=== PATIENT | female | born 1945 | race Caucasian/White ===

== ENCOUNTER 2017-09-26 00:49 | Inpatient (IN) | payer OTHER, MEDICARE ==
[~2017-09-26] VITALS: Ht 152.4 cm; Wt 65.8 kg
[~2017-09-26 00:49] MED LIST: AMLODIPINE BESYL5 M1 PO; BENTYL10 MG PO; BYSTOLIC10 M1 PO; CALTRATE 600 +1 EACH PO; DIOVAN160 MG PO; ESTER-C 1,0001 EACH PO; FOSAMAX70 M1 PO; ULTRAM50 M1 PO; VITAMIN D-32000 UNI1 PO; ZOFRAN ODT4 MG PO
--- NOTE | 2017-09-26 09:27 | Operative Report ---
Operative/Inv Procedure Report Surgery Date: 09/26/17 Name of Procedure: Right total knee arthroplasty Pre-Operative Diagnosis: Primary osteoarthritis right knee Post-Operative Diagnosis: Same Estimated Blood Loss: scant Surgeon/Strategy Planning Consultant: Ariella PETIT,Bo Bacon. Anesthesia: block IV Fluids: See anesthesia record Implants: Striker triathlon posterior stabilize knee. Size 4 femur, size 4 tibial tray, 13 mm polyethylene insert, 31 patellar button Drains: None Specimens: Bone to pathology Tourniquet: 46 minutes Complications: None Condition: Stable Operative Indication: Patient 71-year-old female severe osteoarthritis of the right knee. She has failed conservative treatment and wished to proceed with a right total knee arthroplasty. The risks and benefits of the procedure were discussed with the patient detail in the office. A skilled set hands was necessary provided by physician visitor services information assistant Missael Bacon who aided with retraction and limb positioning and component assembly throughout the case. Operative/Procedure Note Note: Once informed consent was obtained and the correct limb was identified the patient was brought to operative room placed on table supine position. After administration of spinal anesthesia patient had a Patrick catheter and a thigh tourniquet placed. The right lower from his prepped and draped usual sterile fashion. To begin the procedure standard midline incision for total knee arthroplasty was made. Sharp dissection was carried down through skin and subcutaneous tissue and fat. A medial parapatellar arthrotomy was performed and the patella was everted. The fat pad is removed from the patellar tendon. The patella thickness was measured to be 21 mm and an 8 mm resection of bone was taken off of the patella with the patellar jig. Patella was then sized to be size 31 symmetric patellar button and the drill holes for the patellar button were made. The knee was placed in flexion and the patella was retracted laterally and protected. Z retractors were placed to protect the medial collateral ligaments. The medial and lateral menisci were sharply debrided and removed. Anterior cruciate ligament and posterior cruciate were resected. The intramedullary canal of the femur was entered with a step drill. The distal femoral cutting guide placed on each medullary canal with the plan resection of 10 mm distally and a 6 valgus cut. Distal cut was made without complication. The femur sizing block was placed in a was determined that a size 4 femur would be appropriate. A size 4 4-in-1 cutting block was placed and distal femur and the anterior, posterior, chamfer cuts were made without, patient bone was passed off as specimen. Once this was done a size 4 box cut guide was placed and the box cut was made for posterior stabilized knee. At this point curved osteotome was placed around just posterior to the femoral condyles to remove any posterior osteophytes. The remainder of the menisci were resected. A pickle fork retractor was placed behind the tibia and tibia was translated anteriorly. A step drill was used to enter the intramedullary canal of the tibia. Intramedullary cutting guide for the tibia was placed and a plan resection of 4 mm of bone off the medial compartment was performed. This bone was passed off as specimen as well. The tibia sized to be a size 4 tibial tray. Reduction was done with a 4 tibial tray a 4 femur and an 11 mm polyethylene insert. The knee was loose to varus and valgus stress and we moved up to a 13 mm polyethylene insert. The knee had full extension and full flexion of 120. It was stable to varus and valgus stress at 0 in mid flexion. There the was taken through a range of motion and the patella tracked nicely. The tibial tray component rotation was marked and the components removed. Tibial tray was pinned in the proper rotation and the keel cut was made. At this point all entrance removed and the knee was pulse lavaged. Cement was mixed on the back table and the components were cemented in place with the tibial component followed by the femoral component and the patellar button. All excess cement was removed with curettes. A 13 mm polyethylene trial insert was placed in a knee was placed in extension while cement hardened. Once the cement had hardened we again taken through range of motion and was found be stable. A 13 mm polyethylene insert was opened and locked onto the tibial tray area the knee was then pulse lavaged and the tourniquet was released. The arthrotomy is closed #1 Vicryl interpreted sutures and subcutaneous tissues closed #1 Vicryl and 2-0 Vicryl interrupted sutures. Skin was closed gricel and sterile dressings applied. Patient was awakened taken recovery in stable condition.
--- NOTE | 2017-09-26 13:13 | PN- Orthopedic ---
Subjective Subjective: Patient reports pain is well controlled. She reports she is tired, states she did not sleep well last night. Tolerating ice chips. Denies any numbness, tingling, fever, chills, chest pain, shortness of breath, nausea or vomiting. Objective Vital Signs and I&Os afebrile, BP 134/54, HR 70, RR 18, O2 93% on RA Physical Exam: Gen - resting comfortably in pacu in nad Cardiac - S1S2 noted Lungs - CTAB Ext - RLE dressing with jose c/d/i, onQ, ice in place, moves all extremities, motor an sensory intact, alps in place, no edema or calf tenderness B/L - tariq in place, 200 cc output Current Medications: Current Medications Sig/Carrie Start time Last Medication Dose Route Stop Time Status Admin Acetaminophen 0 .STK-MED ONE 09/26 0709 DC PO Acetaminophen 650 MG ONCE 09/26 0000 NR PO 09/26 235 Celecoxib 400 MG ONCE 09/26 0000 NR PO 09/26 235 Dexamethasone 0 .STK-MED ONE 09/26 0708 DC .ROUTE Dexamethasone 10 MG ONCE 09/26 0000 NR IV 09/26 235 Gabapentin 0 .STK-MED ONE 09/26 0709 DC PO Gabapentin 300 MG ONCE 09/26 0000 NR PO 09/26 235 Oxycodone HCl 0 .STK-MED ONE 09/26 0709 DC PO Oxycodone HCl 10 MG ONCE 09/26 0000 NR PO 09/26 235 Ropivacaine 500 ML ONCE ONE 09/26 1000 AC ON-Q Ball 1 BAG INJ 09/28 1159 Scopolamine HBr 0 .STK-MED ONE 09/26 0708 DC TOP Scopolamine HBr 1 PAT ONCE 09/26 0000 NR TOP 09/26 235 Vancomycin HCl 1,000 MG ONCE 09/26 0000 DC Sodium Chloride 250 ML IV 09/26 235 Vancomycin HCl 1,000 MG ONCE 09/26 0000 NR Dextrose/Water 250 ML IV 09/26 235 Assessment/Plan Assessment/Plan 72 F w/ hx of htn who is POD 0 s/p R TKR due to right knee OA, recovering well PT eval, WBAT Advance to regular diet Cont IVF Postop op abx - vanco x1 DVT ppx - eliquis bid tomorrow am, alps Bowel regimen on board Home meds ordered Encourage IS D/c tariq in am Medicine c/s for co-management Anticipate d/c home with hhs in 2-3 days Core Measures Venous Thromboembolism VTE Risk Factors Surgery No Mechanical VTE Prophylaxis d/t N/A MechProphylax Ordered No VTE Pharm Prophylaxis d/t NA PharmProphylax ordered
--- NOTE | 2017-09-26 13:13 | Admission Core Measures ---
Acute Coronary Syndrome (CM) ACS Core Measures Acute Coronary Syndrome Diagnosis No Congestive Heart Failure (NEW) CHF Core Measures Congestive Heart Failure Diagnosis No Cerebrovascular Accident (NEW) CVA Core Measures CVA/TIA Diagnosis No Venous Thromboembolism VTE Core [place] (View Protocol) VTE Risk Factors Surgery No Mechanical VTE Prophylaxis d/t N/A MechProphylax Ordered No VTE Pharm Prophylaxis d/t NA PharmProphylax ordered Problem List As ranked by this Provider includes Assessment & Plan 1. Primary osteoarthritis of right knee HOME MEDS Home Med List Alendronate Sodium (Fosamax) 70 MG TABLET 1 TAB PO QMON osteoporosis ( Reported) Amlodipine Besylate 5 MG TABLET 1 TAB PO DAILY HTN (Reported) Ascorbate Calcium/Bioflavonoid (Anisa-C 1,000 MG Tablet) 1,000 MG-200 MG TABLET 1 TAB PO DAILY SUPPLEMENT (Reported) Calcium Carbonate/Vitamin D3 (Caltrate 600 + D Tablet) 600 MG-800 TABLET 1 TAB PO DAILY SUPPLEMENT (Reported) Cholecalciferol (Vitamin D3) (Vitamin D-3) 2,000 UNIT CAPSULE 1 TAB PO DAILY SUPPLEMENT (Reported) Nebivolol HCl (Bystolic) 10 MG TABLET 1 TAB PO DAILY CARDIAC (Reported) Tramadol HCl (Ultram) 50 MG TABLET 1 TAB PO DAILY PAIN (Reported) Valsartan (Diovan) 160 MG TABLET 1 TAB PO DAILY CARDIAC (Reported)
--- NOTE | 2017-09-26 13:15 | Surgical Discharge Summary ---
Visit Information Visit Dates Admission Date: 09/26/17 Discharge Date: 09/29/17 History of Present Illness Chief Complaint: Right knee pain Medical History Cardiovascular: hypertension Isolation History: Standard Surgical History Pertinent Surgical History: knee replacement (R on 09/26/17) Psychosocial History Who Do You Live With? Spouse Services at Home: None What is Your Primary Language? Yoruba Review of Systems: Refer to H&P Hospital Course Course Attending Physician: Bo Krishnan MD Primary Care Physician: Andrei Bridges MD Hospital Course: Patient was admitted to the hospital for an elective right total knee replacement. The procedure was tolerated well and patient was transferred to a general surgical floor. Medicine was consulted for comedical management. Diet was advanced and tolerated and the patient voided spontaneously. The patient was evaluated and treated by physical therapy. At the time of hospital discharge, the vital signs were stable, neurovascular status was intact and pain was controlled with the use of oral pain medications. Allergies: Coded Allergies: Penicillins (RASH 09/23/17) Disposition Summary Disposition Principal Diagnosis: Primary osteoarthritis, right knee Additional Diagnosis: Same s/p Right total knee arthroplasty Discharge Disposition: home health services Discharge Instructions General Discharge Information Code Status: Full Code Patient's Diet: Regular Patient's Activity: WBAT, RW as needed Follow-Up Instructions/Appts: Follow up in [address] Krishnan Medications at Discharge Discharge Medications: Continue taking these medications: Tramadol HCl (Ultram) 50 MG TABLET 1 Tablet ORAL DAILY Alendronate Sodium (Fosamax) 70 MG TABLET 1 Tablet ORAL EVERY SUNDAY Instructions: in the morning, at least 30 minutes before the first food, beverage, or medication of the day Comments: on Sunday Amlodipine Besylate (Amlodipine Besylate) 5 MG TABLET 1 Tablet ORAL DAILY Valsartan (Diovan) 160 MG TABLET 1 Tablet ORAL DAILY Nebivolol HCl (Bystolic) 10 MG TABLET 1 Tablet ORAL DAILY Ascorbate Calcium/Bioflavonoid (Anisa-C 1,000 MG Tablet) 1,000 MG-200 MG TABLET 1 Tablet ORAL DAILY Calcium Carbonate/Vitamin D3 (Caltrate 600 + D Tablet) 600 MG-800 TABLET 1 Tablet ORAL DAILY Cholecalciferol (Vitamin D3) (Vitamin D-3) 2,000 UNIT CAPSULE 1 Tablet ORAL DAILY Start taking the following new medications: Hydrocodone/Acetaminophen (Hydrocodon-Acetaminophen 5-325) 5 MG-325 MG TABLET 1-2 Tablet ORAL EVERY 4-6 HOURS NEEDED as needed for PAIN Qty = 15 No Refills Apixaban (Eliquis) 2.5 MG TABLET 1 Tablet ORAL TWICE DAILY Qty = 80 No Refills
--- NOTE | 2017-09-26 13:29 | Cons- Medical ---
Grace PETIT,uQe 09/26/17 1329: General Information and HPI Consulting Request Date of Consult: 09/26/17 Requested By: Ariella PETIT,Bo Griffith Reason for Consult: Co-Management Source of Information: patient, family, old records Exam Limitations: no limitations History of Present Illness: Ms. Chung is a pleasant 72-year-old female with past medical history of hypertension and osteoarthritis who was seen today at the [facility] for right knee arthroplasty. Patient had been experiencing right knee pain and over the last three years and in the last 12 months had noticed worsening in her symptoms. She denied any trauma or any injury. Patient successfully underwent procedure in the morning of 09/26/2017. The medical service was asked to see the patient postoperatively. She was resting comfortably in bed. She denied any complaints. Denies any recent changes to her medication and has had no significant side effects from any of her medications. Primary care physician is Dr. Bridges. During the time of clinical infection she was accompanied by her 2 sons Freddie and Jack and well as her . Allergies/Medications Allergies: Coded Allergies: Penicillins (RASH 09/23/17) Home Med List: Alendronate Sodium (Fosamax) 70 MG TABLET 1 TAB PO QMON osteoporosis ( Reported) in the morning, at least 30 minutes before the first food, beverage, or medication of the day Amlodipine Besylate 5 MG TABLET 1 TAB PO DAILY HTN (Reported) Ascorbate Calcium/Bioflavonoid (Anisa-C 1,000 MG Tablet) 1,000 MG-200 MG TABLET 1 TAB PO DAILY SUPPLEMENT (Reported) Calcium Carbonate/Vitamin D3 (Caltrate 600 + D Tablet) 600 MG-800 TABLET 1 TAB PO DAILY SUPPLEMENT (Reported) Cholecalciferol (Vitamin D3) (Vitamin D-3) 2,000 UNIT CAPSULE 1 TAB PO DAILY SUPPLEMENT (Reported) Nebivolol HCl (Bystolic) 10 MG TABLET 1 TAB PO DAILY CARDIAC (Reported) Tramadol HCl (Ultram) 50 MG TABLET 1 TAB PO DAILY PAIN (Reported) Valsartan (Diovan) 160 MG TABLET 1 TAB PO DAILY CARDIAC (Reported) Current Medications: Current Medications Sig/Carrie Start time Last Medication Dose Route Stop Time Status Admin Acetaminophen 0 .STK-MED ONE 09/26 0709 DC PO Acetaminophen 1,000 MG .STK-MED ONE 09/26 0645 DC IV 09/26 0646 Acetaminophen 650 MG ONCE 09/26 0000 DC PO 09/26 2359 Amlodipine Besylate 5 MG DAILY 09/26 0900 AC PO Apixaban 2.5 MG BID 09/27 0900 AC PO Celecoxib 400 MG DAILY 09/27 09 AC PO Celecoxib 400 MG ONCE 09/26 0000 DC PO 09/26 2359 Dexamethasone 0 .STK-MED ONE 09/26 0708 DC .ROUTE Dexamethasone 10 MG ONCE 09/26 0000 DC IV 09/26 2359 Dextrose/Lactated 1,000 ML Q13H 09/26 1400 AC Ringer's IV Docusate Sodium 100 MG DAILY NEEDED PRN 09/26 1400 AC PO Fentanyl Citrate 200 MCG .STK-MED ONE 09/26 0644 DC IM 09/26 0645 Gabapentin 0 .STK-MED ONE 09/26 0709 DC PO Gabapentin 300 MG ONCE 09/26 0000 DC PO 09/26 2359 Losartan Potassium 50 MG DAILY 09/27 899 AC PO Midazolam HCl 4 MG .STK-MED ONE 09/26 0645 DC IM 09/26 0646 Morphine Sulfate 2 MG Q3P PRN 09/26 1400 AC IV Morphine Sulfate 4 MG Q3P PRN 09/26 1400 AC IV Morphine Sulfate 10 MG .STK-MED ONE 09/26 0644 DC IV 09/26 0645 Nebivolol 10 MG DAILY 09/27 0900 AC PO Ondansetron HCl 4 MG Q6P PRN 09/26 1400 AC IV Oxycodone HCl 0 .STK-MED ONE 09/26 0709 DC PO Oxycodone HCl 10 MG ONCE 09/26 0000 DC PO 09/26 2359 Oxycodone/ 1 TAB Q4P PRN 09/26 1400 AC Acetaminophen PO Oxycodone/ 2 TAB Q4P PRN 09/26 1400 AC Acetaminophen PO Polyethylene Glycol 17 GM DAILY NEEDED PRN 09/26 1400 AC PO Ropivacaine 500 ML ONCE ONE 09/26 1000 AC ON-Q Ball 1 BAG INJ 09/28 1159 Scopolamine HBr 0 .STK-MED ONE 09/26 0708 DC TOP Scopolamine HBr 1 PAT ONCE 09/26 0000 DC TOP 09/26 2359 Senna/Docusate Sodium 2 TAB AT BEDTIME NEED.. 09/26 1400 AC PO Tranexamic Acid 2,000 MG .STK-MED ONE 09/26 0643 DC IV 09/26 0644 Vancomycin HCl 1,000 MG 1900 09/26 1900 AC Dextrose/Water 250 ML IV 09/26 1959 Vancomycin HCl 1,000 MG ONCE 09/26 0000 DC Sodium Chloride 250 ML IV 09/26 2358 Vancomycin HCl 1,000 MG ONCE 09/26 0000 DC Dextrose/Water 250 ML IV 09/26 2358 Review of Systems Review of Systems Constitutional: Reports: see HPI. Past History Medical History Cardiovascular: hypertension Surgical History Surgical History: knee replacement (R on 09/26/17) Family History Relations & Conditions If Any: MOTHER (DM). FATHER (Pancreatic CA). Psychosocial History Where Do You Live? Home Who Do You Live With? spouse, child Services at Home: None Primary Language: Paraguayan Smoking Status: Former Smoker ETOH Use: denies use Illicit Drug Use: denies illicit drug use Exam & Diagnostic Data Last 24 Hrs of Vital Signs/I&O Vital Signs Date Time Temp Pulse Resp B/P B/P Pulse O2 O2 Flow FiO2 Mean Ox Delivery Rate 09/26 1404 95 Room Air 09/26 1400 97.5 65 16 132/58 95 Room Air Intake & Output 09/26 1600 09/26 0800 09/26 0000 Intake Total Output Total 225 Balance -225 Output, Urine 225 Patient 65.771 kg Weight Physical Exam General Appearance: well developed/nourished, no apparent distress, alert Head: atraumatic, normal appearance Eyes: Bilateral: PERRL, EOMI. Cardiovascular: regular rate/rhythm, Left Sided carotid bruit Gastrointestinal: normal bowel sounds, soft, non-tender Extremities: normal inspection, normal capillary refill, Right knee in bandage. C/D/I. No strike through. Warm extremities. No Calf tenderens. Neurologic/Psych: no motor/sensory deficits, awake, alert, oriented x 3 Cranial Nerves: normal hearing, normal speech, PERRL Skin: intact, normal color Last 24 Hrs of Labs/James: Laboratory Tests 09/27/17 0820: Sodium Pending, Potassium Pending, Chloride Pending, Carbon Dioxide Pending, Anion Gap Pending, BUN Pending, Creatinine Pending, BUN/Creatinine Ratio Pending , CBC w Diff Pending, WBC Pending, RBC Pending, Hgb Pending, Hct Pending, MCV Pending, MCH Pending, MCHC Pending, RDW Pending, Plt Count Pending, MPV Pending Assessment/Plan Assessment/Plan Ms. Chung is a pleasant 72-year-old female with past medical history of hypertension and osteoarthritis who was seen today at the [facility] for right knee arthroplasty. Right knee arthroplasty due to history of osteoarthritis. POD #0 Currently stable. PLAN Continue postop pain per surgery. Weightbearing as tolerated. Consider PT consultation over the course of the week Left Carotid Bruit Stable Plan She followed up with Kirk Moreira MD. Hold Cardiology consultation for now unless endorses chest pain/vision abnormalities Essential hypertension. Patient's last blood pressure is 132/58 Plan Continue amlodipine 5 mg. Bystolic 20 mg. Diovan 160 mg daily. History of osteo-porosis. Patient is on alendronate which she takes once a week. Plan Stable Continue alendronate 70 mg as outpatient. DVT prophylaxis as per surgery. Diet heart healthy with sodium restriction Patient is a full code. We will continue to follow the patient with you and in the interim we thank you for this consult. Problem List: 1. Primary osteoarthritis of right knee Consult Acknowledgment - Thank you for your consult request. Kaden Delgado MD 09/26/17 2202: Assessment/Plan Consult Acknowledgment - Thank you for your consult request. Attending MD Review Statement Attending Statement Attending MD Statement: examined this patient, discuss w/resident/PA/EARLY BREASTFEEDING CARE SPECIALIST, agreed w/resident/PA/EARLY BREASTFEEDING CARE SPECIALIST, reviewed EMR data (avail), discussed with nursing, amended to note Attending Assessment/Plan: The patient is a 72 yo female with h/o HTN & OA who presented for elective right knee arthroplasty done for OA. Pre-operatively she had been evaluated by her PCP (Dr. Bridges) and was sent to Cardiology (Dr. Moreira) for evaluation as well and had been determined to be low risk for surgery. She did well with surgery and when I saw her in PACU she had no complaints. Surgery was performed under spinal anesthesia. Physical Exam: VS: T 97.5, P 65, R 16, BP 132/58, PO 96% RA HEENT: eyes- PERRLA, EOMI ayah- moist mucosa Neck: no bruits (?pre-op mentioned left sided bruit) & no JVD Chest: clear Cor: RRR nl S1, S2 w/o murm Abd: BS+, soft, NT, - HSM Ext: s/p left knee arthroplasty, no edema, pulses 2+ Neuro: alert & oriented x 3, non-focal Labs/Test- as above Impression/Plan: #S/P Right Knee Arthroplasty- due to OA. Did well with procedure. No c/o at present. Plan: Post op care as per orthopedics. Apixaban for anti-coagulation. #Essential HTN- BP good as above. Plan: Continue Amlodipine/Diovan/Bystolic. #Osteoporosis- on Alendronate. Plan: Hold while inpatient and resume as OP.
--- NOTE | 2017-09-26 13:34 | Patient Discharge Instructions ---
Discharge Instructions General Discharge Information You were seen/treated for: Right knee osteoarthritis You had these procedures: Right total knee replacement Watch for these problems: Increased pain, fever > 101.3, chills, redness, swelling or drainage from your incision. No bath, but you may shower: Yes Other wound care: Keep incision clean an dry, change dressing daily. No ointments on the incision. Special Instructions: Take eliquis as prescribed to prevent clot prevention Diet Continue normal diet: Yes Activity Full Activity/No Limits: No Activity Self Limited: Yes Activity Limited to: Weight bear as tolerated Additional ACTIVITY Info: Use rolling walker as needed Acute Coronary Syndrome Inclusion Criteria At DC or during hospital stay patient has or had the following: ACS DIAGNOSIS No Discharge Core Measures Meds if any: Prescribed or Continued at Discharge Meds if any: NOT Prescribed or Continued at Discharge Congestive Heart Failure Inclusion Criteria At DC or during hospital stay patient has or had the following: CHF DIAGNOSIS No Discharge Core Measures Meds if any: Prescribed or Continued at Discharge Meds if any: NOT Prescribed or Continued at Discharge Cerebrovascular accident Inclusion Criteria At DC or during hospital stay patient has or had the following: CVA/TIA Diagnosis No Discharge Core Measures Meds if any: Prescribed or Continued at Discharge Meds if any: NOT Prescribed or Continued at Discharge Venous thromboembolism Inclusion Criteria VTE Diagnosis No VTE Type NONE VTE Confirmed by (Test) NONE Discharge Core Measures - Per Current guidelines, there needs to be overlap - treatment for the first 5 days of Warfarin therapy. - If discharged on Warfarin prior to 5 days of - overlap therapy, the patient will need to be - assessed for post discharge needs including - *Post discharge parental anticoagulation - *Warfarin and/or parental anticoagulation education - *Follow up date to check INR post discharge At least 5 days overlap therapy as Inpatient No Meds if any: Prescribed or Continued at Discharge Note: Overlap Therapy is Warfarin and Anticoagulant Meds if any: NOT Prescribed or Continued at Discharge
[2017-09-26 14:00] VITALS: BP 132/58
[2017-09-26 16:00] VITALS: BP 130/52
[2017-09-26 18:00] VITALS: BP 122/52
[2017-09-26 20:00] VITALS: BP 130/60
[2017-09-27] VITALS (7 sets, daily range): BP systolic 112–160; BP diastolic 58–78
--- NOTE | 2017-09-27 07:12 | PN- Medicine Consult ---
See Addendum Assessment/PlanMedical Consult Assessment/Plan Assessment: Ms. Chung is a pleasant 72-year-old female with past medical history of hypertension and osteoarthritis who admitted on 09/26 at [facility] for right knee arthroplasty. Plan: Right knee arthroplasty due to history of osteoarthritis. POD #1 Currently stable. Morning Labs are pending. PLAN Continue postop pain per surgery. Weightbearing as tolerated. Consider PT consultation over the course of the week Left Carotid Bruit Stable Plan She followed up with Kirk Moreira MD. Hold Cardiology consultation for now unless endorses chest pain/vision abnormalities Essential hypertension. Patient's last blood pressure is 122/62 Plan Continue amlodipine 5 mg. Bystolic 10 mg (home dose is 20 mg). Diovan 160 mg daily. History of osteo-porosis. Patient is on alendronate which she takes once a week. Plan Stable Continue alendronate 70 mg as outpatient. DVT prophylaxis Eliquis 2.5 BID Diet heart healthy with sodium restriction Patient is a full code. We will continue to follow the patient with you and in the interim we thank you for this consult. Subjective Subjective: Ms. Chung was seen and examined this morning. She is Resting comfortably in bed. Patient has had no issued overnight and was able to get some rest, she states that she feels better. She states that she is almost pain-free stating that the pain has been well controlled and does not require any more pain medications. She also states that she is very happy with how her blood pressures have been trending. She endorses no further complaints patient denies any fever, chills, nausea, vomiting. Review of Systems Constitutional: Reports: see HPI. Objective Last 24 Hrs of Vital Signs/I&O Vital Signs Date Time Temp Pulse Resp B/P B/P Pulse O2 O2 Flow FiO2 Mean Ox Delivery Rate 09/27 0854 67 122/62 09/27 0854 67 122/62 09/27 0853 67 122/62 09/27 0812 98.0 67 20 122/62 98 Room Air 09/27 0412 97.7 81 16 112/70 94 Room Air 09/27 0011 98.2 77 18 116/78 96 Room Air 09/26 2000 97.0 68 20 130/60 95 09/26 1800 97.6 71 16 122/52 99 Room Air 09/26 1600 99 Room Air 09/26 1600 97.8 59 16 130/52 96 Room Air 09/26 1404 95 Room Air 09/26 1400 97.5 65 16 132/58 95 Room Air Intake & Output 09/27 1600 09/27 0800 09/27 0000 Intake Total 1200 760 Output Total 200 1000 540 Balance -200 200 220 Intake, IV 600 300 Intake, Oral 600 460 Output, Urine 200 1000 540 Physical Exam General Appearance: well developed/nourished, no apparent distress, alert, awake Ears, Nose, Throat: normal pharynx Neck: Left Sided catotid bruir 08/14 Cardiovascular: regular rate/rhythm Respiratory: normal breath sounds, chest non-tender, no respiratory distress Abdomen: normal bowel sounds Extremities: normal inspection, normal capillary refill, no edema, No calf tenderness. Right knee in bandage. clean, dry and intact. Neurologic/Psychiatric: no motor/sensory deficits, awake, alert Current Medications: Current Medications Sig/Carrie Start time Last Medication Dose Route Stop Time Status Admin Acetaminophen 325 MG Q6P PRN 09/27 0945 AC PO Acetaminophen 650 MG ONCE 09/26 0000 DC PO 09/26 2359 Amlodipine Besylate 5 MG DAILY 09/26 09 AC 09/27 PO 0854 Apixaban 2.5 MG BID 09/27 09 AC 09/27 PO 0854 Celecoxib 400 MG DAILY 09/27 09 AC 09/27 PO 0854 Celecoxib 400 MG ONCE 09/26 0000 DC PO 09/26 2359 Dexamethasone 10 MG ONCE 09/26 0000 DC IV 09/26 2359 Dextrose/Lactated 1,000 ML Q13H 09/26 1400 DC 09/27 Ringer's IV 0202 Docusate Sodium 100 MG DAILY NEEDED PRN 09/26 1400 AC PO Gabapentin 300 MG ONCE 09/26 0000 DC PO 09/26 2359 Losartan Potassium 50 MG DAILY 09/27 0900 AC 09/27 PO 0854 Morphine Sulfate 2 MG Q3P PRN 09/26 1400 AC IV Morphine Sulfate 4 MG Q3P PRN 09/26 1400 AC IV Nebivolol 10 MG DAILY 09/27 0900 AC 09/27 PO 0853 Ondansetron HCl 4 MG Q6P PRN 09/26 1400 AC IV Oxycodone HCl 10 MG ONCE 09/26 0000 DC PO 09/26 2359 Oxycodone/ 1 TAB Q4P PRN 09/26 1400 AC 09/27 Acetaminophen PO 0604 Oxycodone/ 2 TAB Q4P PRN 09/26 1400 AC Acetaminophen PO Polyethylene Glycol 17 GM DAILY NEEDED PRN 09/26 1400 AC 09/27 PO 0854 Ropivacaine 500 ML ONCE ONE 09/26 1000 AC ON-Q Ball 1 BAG INJ 09/28 1159 Scopolamine HBr 1 PAT ONCE 09/26 0000 DC TOP 09/26 2359 Senna/Docusate Sodium 2 TAB AT BEDTIME NEED.. 09/26 1400 AC PO Vancomycin HCl 1,000 MG 1900 09/26 1900 DC 09/26 Dextrose/Water 250 ML IV 09/26 1959 1849 Vancomycin HCl 1,000 MG ONCE 09/26 0000 DC Dextrose/Water 250 ML IV 09/26 2359 Results Last 24 Hrs Lab/James Results: Laboratory Tests 09/27/17 0820: Sodium Pending, Potassium Pending, Chloride Pending, Carbon Dioxide Pending, Anion Gap Pending, BUN Pending, Creatinine Pending, BUN/Creatinine Ratio Pending , CBC w Diff Pending, WBC Pending, RBC Pending, Hgb Pending, Hct Pending, MCV Pending, MCH Pending, MCHC Pending, RDW Pending, Plt Count Pending, MPV Pending
[2017-09-27 09:38] LABS: ABSOLUTE BASOPHIL COUNT 0 /CUMM (0.0-0.2); ABSOLUTE EOSINOPHIL COUNT 0 /CUMM (0.0-0.7); ABSOLUTE GRANULOCYTE CT 20.5 /CUMM (1.4-6.5); ABSOLUTE LYMPH COUNT 1.1 /CUMM (1.2-3.4); ABSOLUTE MONOCYTE COUNT 0.9 /CUMM (0.10-0.60); BASOPHIL % 0.1 % (0.0-2.0); EOSINOPHIL % 0 % (0-5); HEMATOCRIT 25.4 % (37-47); MEAN CORPUSCULAR HGB CONC 33.6 G/DL (33.0-37.0); MEAN CORPUSCULAR VOLUME 92.1 FL (81.0-99.0); MEAN PLATELET VOLUME 7.3 FL (7.4-10.4); PLATELET COUNT 319 /CUMM (130-400); RBC DISTRIBUTION WIDTH 14.1 % (11.5-14.5); RED BLOOD CELL CT 2.76 /CUMM (4.20-5.40); WHITE BLOOD CELL COUNT 22.5 /CUMM (4.8-10.8)
--- NOTE | 2017-09-27 09:46 | PN- Orthopedic ---
Subjective Subjective: Pt. has no complaints. Her Patrick was removed this morning , she voided subsequently. She wishes for plain Tylenol for discomfort. No nausea Objective Vital Signs and I&Os Vital Signs Date Time Temp Pulse Resp B/P B/P Pulse O2 O2 Flow FiO2 Mean Ox Delivery Rate 09/27 0854 67 122/62 09/27 0854 67 122/62 09/27 0853 67 122/62 09/27 0812 98.0 67 20 122/62 98 Room Air 09/27 0412 97.7 81 16 112/70 94 Room Air 09/27 0011 98.2 77 18 116/78 96 Room Air 09/26 2000 97.0 68 20 130/60 95 09/26 1800 97.6 71 16 122/52 99 Room Air 09/26 1600 99 Room Air 09/26 1600 97.8 59 16 130/52 96 Room Air 09/26 1404 95 Room Air 09/26 1400 97.5 65 16 132/58 95 Room Air Intake & Output 09/27 1600 09/27 0800 09/27 0000 09/26 1600 09/26 0800 09/26 0000 Intake Total 1200 760 Output Total 200 1000 540 225 Balance -200 200 220 -225 Intake, IV 600 300 Intake, Oral 600 460 Output, Urine 200 1000 540 225 Patient 145 lb Weight Alert, oriented, appropriate, sitting in chair. HEENT unremarkable. Lungs clear bilat Heart , normal rate Abdomen benign. RLE dressing on , intact. OnQ pump in place, insertion site intact. Bilat. LE warm, no edema, palpable bilat. distal pulses, neurovascular intact. Assessment/Plan Assessment/Plan s/p RTKA for OA POD#1 Pt. hemodynamically stable, normal VS, voiding spontaneously post Patrick removal. Good pain control, will add Tylenol prn for mild pain per pt. request. No signs of infection Ambulate, pt. working with PT. Tolerating solid food, will d/c IVF Cont. Eliquis bid per surgeon. Possible d/c home tomorrow, will d/c On Q pump and change dressing tomorrow. Core Measures Venous Thromboembolism VTE Risk Factors Surgery No Mechanical VTE Prophylaxis d/t N/A MechProphylax Ordered No VTE Pharm Prophylaxis d/t NA PharmProphylax ordered
[2017-09-27 10:51] LABS: GRANULOCYTE % 91.3 % (42.2-75.2)
[2017-09-28 02:07] VITALS: BP 162/50
[2017-09-28 06:20] VITALS: BP 142/68
--- NOTE | 2017-09-28 07:13 | PN- Medicine Consult ---
See Addendum Assessment/PlanMedical Consult Assessment/Plan Assessment: Ms. Chung is a pleasant 72-year-old female with past medical history of hypertension and osteoarthritis who admitted on 09/26 at [facility] for right knee arthroplasty. Plan: Right knee arthroplasty due to history of osteoarthritis. POD #2 Currently stable. Morning Labs reviewed. Electrolytes WNL. Hyperkalemia normalized. PLAN Continue postop pain per surgery. Discontinued Percocet. Weightbearing as tolerated. Left Carotid Bruit Stable Plan She followed up with Kirk Moreira MD. Hold Cardiology consultation for now unless endorses chest pain/vision abnormalities Essential hypertension. Patient's last blood pressure is 142/68 Plan Continue amlodipine 5 mg. Bystolic 10 mg (home dose is 20 mg), may consider increase to 20 mg. Diovan 160 mg daily. History of osteo-porosis. Patient is on alendronate which she takes once a week. Plan Stable Continue alendronate 70 mg as outpatient. DVT prophylaxis Eliquis 2.5 BID Diet heart healthy with sodium restriction Patient is a full code. We will continue to follow the patient with you and in the interim we thank you for this consult. Subjective Subjective: Ms Chung was seen and examined this morning. She is resting comfortably in bed. She denies any issues overnight and was able to work with PT walking across the yang and the stairs. States that she did have an allergic reaction to Percocet after she broke out in a rash. She has refrained from taknig this medication and instead will use tramadol and acetaminophen. She denies any nausea or vomiting. Review of Systems Constitutional: Reports: see HPI. Objective Last 24 Hrs of Vital Signs/I&O Vital Signs Date Time Temp Pulse Resp B/P B/P Pulse O2 O2 Flow FiO2 Mean Ox Delivery Rate 09/28 0620 98.1 63 20 142/68 95 Room Air 09/28 0207 98.1 61 20 162/50 95 Room Air 09/27 2200 98.6 63 20 160/58 94 Room Air 09/27 1800 98.3 63 18 160/58 98 Room Air 09/27 1440 98.2 70 18 138/60 99 Room Air 09/27 1145 98.5 64 20 126/58 100 Room Air 09/27 0854 67 122/62 09/27 0854 67 122/62 09/27 0853 67 122/62 Intake & Output 09/28 1600 09/28 0800 09/28 0000 Intake Total 360 290 Output Total 800 1800 Balance -440 -1510 Intake, IV 10 Intake, Oral 360 280 Output, Urine 800 1800 Physical Exam General Appearance: well developed/nourished, no apparent distress, alert, awake Cardiovascular: regular rate/rhythm Respiratory: normal breath sounds, chest non-tender, no respiratory distress Peripheral Pulses: 4+ dorsalis pedis (R), 4+ dorsalis pedis (L) Abdomen: normal bowel sounds, soft, non-tender Extremities: normal inspection, normal capillary refill, normal range of motion, Right Knee in bandage. C/D/I Current Medications: Current Medications Sig/Carrie Start time Last Medication Dose Route Stop Time Status Admin Acetaminophen 325 MG Q6P PRN 09/27 0945 AC 09/27 PO 2022 Amlodipine Besylate 5 MG DAILY 09/26 09 AC 09/27 PO 0854 Apixaban 2.5 MG BID 09/27 09 AC 09/27 PO 2022 Celecoxib 400 MG DAILY 09/27 09 AC 09/27 PO 0854 Dextrose/Lactated 1,000 ML Q13H 09/26 1400 DC 09/27 Ringer's IV 0202 Docusate Sodium 100 MG DAILY NEEDED PRN 09/26 1400 AC PO Losartan Potassium 50 MG DAILY 09/27 0900 AC 09/27 PO 0854 Morphine Sulfate 2 MG Q3P PRN 09/26 1400 AC IV Morphine Sulfate 4 MG Q3P PRN 09/26 1400 AC IV Nebivolol 10 MG DAILY 09/27 0900 AC 09/27 PO 0853 Ondansetron HCl 4 MG Q6P PRN 09/26 1400 AC IV Oxycodone/ 1 TAB Q4P PRN 09/26 1400 AC 09/27 Acetaminophen PO 0604 Oxycodone/ 2 TAB Q4P PRN 09/26 1400 AC Acetaminophen PO Patient Medication 1 ED ONE ONE 09/27 1944 NM Teaching ED 09/27 1945 Polyethylene Glycol 17 GM DAILY NEEDED PRN 09/26 1400 AC 09/27 PO 0854 Ropivacaine 500 ML ONCE ONE 09/26 1000 AC ON-Q Ball 1 BAG INJ 09/28 1159 Senna/Docusate Sodium 2 TAB AT BEDTIME NEED.. 09/26 1400 AC PO Tramadol HCl 50 MG Q4 PRN 09/27 1900 AC 09/28 PO 0411 Results Last 24 Hrs Lab/James Results: Laboratory Tests 09/28/17 0641: Sodium Pending, Potassium Pending, Chloride Pending, Carbon Dioxide Pending, Anion Gap Pending, BUN Pending, Creatinine Pending, BUN/Creatinine Ratio Pending
[2017-09-28 09:17] LABS: ABSOLUTE BASOPHIL COUNT 0 /CUMM (0.0-0.2); ABSOLUTE EOSINOPHIL COUNT 0.2 /CUMM (0.0-0.7); ABSOLUTE GRANULOCYTE CT 10.5 /CUMM (1.4-6.5); ABSOLUTE LYMPH COUNT 2.1 /CUMM (1.2-3.4); ABSOLUTE MONOCYTE COUNT 0.9 /CUMM (0.10-0.60); BASOPHIL % 0.2 % (0.0-2.0); EOSINOPHIL % 1.3 % (0-5); GRANULOCYTE % 76.5 % (42.2-75.2); HEMATOCRIT 26.6 % (37-47); MEAN CORPUSCULAR HGB 30.5 PG (27.0-31.0); MEAN CORPUSCULAR HGB CONC 33.1 G/DL (33.0-37.0); MEAN CORPUSCULAR VOLUME 91.9 FL (81.0-99.0); MEAN PLATELET VOLUME 6.8 FL (7.4-10.4); PLATELET COUNT 349 /CUMM (130-400); RBC DISTRIBUTION WIDTH 14.4 % (11.5-14.5); RED BLOOD CELL CT 2.89 /CUMM (4.20-5.40); WHITE BLOOD CELL COUNT 13.7 /CUMM (4.8-10.8)
--- NOTE | 2017-09-28 09:21 | PN- Orthopedic ---
Subjective Subjective: No acute overnight events reported. On Q removed this am, complaining of pain, does state that pain responds to tramadol. Denies chest pain, shortness of breath and difficulty breathing. Denies nausea and vomitting. Has been oob. Has been voiding. Objective Vital Signs and I&Os Vital Signs Date Time Temp Pulse Resp B/P B/P Pulse O2 O2 Flow FiO2 Mean Ox Delivery Rate 09/28 0900 98.1 63 20 142/68 09/28 0900 98.1 63 20 142/68 09/28 0859 98.1 63 20 142/68 09/28 0620 98.1 63 20 142/68 95 Room Air 09/28 0207 98.1 61 20 162/50 95 Room Air 09/27 2200 98.6 63 20 160/58 94 Room Air 09/27 1800 98.3 63 18 160/58 98 Room Air 09/27 1440 98.2 70 18 138/60 99 Room Air 09/27 1145 98.5 64 20 126/58 100 Room Air Intake & Output 09/28 1600 09/28 0800 09/28 0000 09/27 1600 09/27 0800 09/27 0000 Intake Total 360 994 093 0082 760 Output Total 800 8279 469 3927 540 Balance -440 -1510 -320 200 220 Intake, IV 10 600 300 Intake, Oral 360 280 480 600 460 Number 0 Bowel Movements Output, Urine 800 9638 118 2200 540 Physical Exam: General: Alert and oriented x3, no acute distress Cardiac: RRR, s1s2 Pulm: C T A bilaterally ABD: Non-tender non-distended Extremities: Moves all extremities, distal sensation grossly intact. Skin warm and well perfused. Dp pulses palpable bialterally, bilateral calves soft and non -tender Surgical site: RIght knee. Dressing removed. Skin edges well approximated with gricel. No drainage, some bruising noted medially and laterally. Clean dry dressing reapplied. Assessment/Plan Assessment/Plan This is a 72 year old female, POD 2, s/p R TKR -Continue eliquis 2.5 bid for dvt ppx -Continue oob, wbat -Continue current pain regimen with tramadol, assess level of pain without on q -No percocet, had rxn -Anticipate dc to home tomorrow with [facility] Will discuss plan of care with DR. Krishnan Core Measures Venous Thromboembolism VTE Risk Factors Surgery No Mechanical VTE Prophylaxis d/t N/A MechProphylax Ordered No VTE Pharm Prophylaxis d/t NA PharmProphylax ordered
--- NOTE | 2017-09-28 10:50 | RADIOLOGY REPORT ---
EXAMINATION: XR KNEE, RIGHT CLINICAL INFORMATION: Status post right knee arthroplasty COMPARISON: None TECHNIQUE: Two views of the right knee. FINDINGS: Recent right knee arthroplasty. Prosthesis is well seated. Air in the soft tissues, joint effusion and mild soft tissue swelling compatible recent postoperative changes. Nonspecific linear ossific/calcific densities noted inferior and lateral to the patella. No acute osseous abnormality is noted. IMPRESSION: Recent postoperative changes.
[2017-09-28 14:59] VITALS: BP 130/60
[2017-09-28 22:29] VITALS: BP 114/66
[2017-09-29 06:22] VITALS: BP 146/68
--- NOTE | 2017-09-29 07:42 | PN- Orthopedic ---
Subjective Subjective: Patient states she feels well. Pain controlled with Ultram. Ambulating with PT, cleared by PT. Tolerating a diet, passing flatus and voiding spontanously. Feels ready to go home today. Offer no complaints. Objective Vital Signs and I&Os Vital Signs Date Time Temp Pulse Resp B/P B/P Pulse O2 O2 Flow FiO2 Mean Ox Delivery Rate 09/29 0622 98.3 61 18 146/68 97 Room Air 09/28 2229 98.4 63 18 114/66 98 Room Air 09/28 1459 97.8 58 20 130/60 95 Room Air 09/28 0900 98.1 63 20 142/68 09/28 0900 98.1 63 20 142/68 09/28 0859 98.1 63 20 142/68 Intake & Output 09/29 1600 09/29 0800 09/29 0000 09/28 1600 09/28 0800 09/28 0000 Intake Total 240 200 800 360 290 Output Total 861 551 3499 Balance 240 200 400 -440 -1510 Intake, IV 10 Intake, Oral 240 200 800 360 280 Output, Urine 704 937 1253 Physical Exam: Gen - resting comfortably in nad Cardiac - S1S2 noted Lungs - CTAB Ext - Right knee dressing c/d/i, gricel well-approximated healing well with no signs of infection, mild swelling, redressed, moves all extremities, motor an sensory intact, alps in place, no edema or calf tenderness B/L Current Medications: Current Medications Sig/Carrie Start time Last Medication Dose Route Stop Time Status Admin Acetaminophen 325 MG Q6P PRN 09/27 0845 AC 09/27 PO 2022 Amlodipine Besylate 5 MG DAILY 09/26 899 AC 09/28 PO 09 Apixaban 2.5 MG BID 09/27 899 AC 09/28 PO 2103 Celecoxib 400 MG DAILY 09/27 899 AC 09/28 PO 0859 Docusate Sodium 100 MG DAILY NEEDED PRN 09/26 1400 AC PO Losartan Potassium 50 MG DAILY 09/27 899 AC 09/28 PO 0900 Morphine Sulfate 2 MG Q3P PRN 09/26 1400 AC IV Morphine Sulfate 4 MG Q3P PRN 09/26 1400 AC IV Nebivolol 10 MG DAILY 09/27 899 AC 09/28 PO 0859 Ondansetron HCl 4 MG Q6P PRN 09/26 1400 AC IV Oxycodone/ 1 TAB Q4P PRN 09/26 1400 DC 09/27 Acetaminophen PO 0604 Oxycodone/ 2 TAB Q4P PRN 09/26 1400 DC Acetaminophen PO Patient Medication 1 ED ONE ONE 09/28 1715 DC Teaching ED 09/28 1716 Polyethylene Glycol 17 GM DAILY NEEDED PRN 09/26 1400 AC 09/27 PO 0854 Ropivacaine 500 ML ONCE ONE 09/26 1000 DC ON-Q Ball 1 BAG INJ 09/28 1159 Senna/Docusate Sodium 2 TAB AT BEDTIME NEED.. 09/26 1400 AC 09/28 PO 2318 Tramadol HCl 50 MG Q4 PRN 09/27 1900 AC 09/29 PO 0625 Results Last 48 Hours of Labs: Laboratory Tests 09/28 09/28 0907 0641 Chemistry Sodium (137 - 145 mmol/L) 143 Potassium (3.5 - 5.1 mmol/L) 4.6 Chloride (98 - 107 mmol/L) 111 H Carbon Dioxide (22 - 30 mmol/L) 21 L Anion Gap (5 - 16) 11 BUN (7 - 17 mg/dL) 28 H Creatinine (0.5 - 1.0 mg/dL) 1.2 H Estimated GFR (>60 ml/min) 44 L BUN/Creatinine Ratio (7 - 25 %) 23.3 Hematology CBC w Diff NO MAN DIFF REQ WBC (4.8 - 10.8 /CUMM) 13.7 H RBC (4.20 - 5.40 /CUMM) 2.89 L Hgb (12.0 - 16.0 G/DL) 8.8 L Hct (37 - 47 %) 26.6 L MCV (81.0 - 99.0 FL) 91.9 MCH (27.0 - 31.0 PG) 30.5 MCHC (33.0 - 37.0 G/DL) 33.1 RDW (11.5 - 14.5 %) 14.4 Plt Count (130 - 400 /CUMM) 349 MPV (7.4 - 10.4 FL) 6.8 L Gran % (42.2 - 75.2 %) 76.5 H Lymphocytes % (20.5 - 51.1 %) 15.5 L Monocytes % (1.7 - 9.3 %) 6.5 Eosinophils % (0 - 5 %) 1.3 Basophils % (0.0 - 2.0 %) 0.2 Absolute Granulocytes (1.4 - 6.5 /CUMM) 10.5 H Absolute Lymphocytes (1.2 - 3.4 /CUMM) 2.1 Absolute Monocytes (0.10 - 0.60 /CUMM) 0.9 H Absolute Eosinophils (0.0 - 0.7 /CUMM) 0.2 Absolute Basophils (0.0 - 0.2 /CUMM) 0 09/27 0820 Chemistry Sodium (137 - 145 mmol/L) 134 L Potassium (3.5 - 5.1 mmol/L) 5.4 H Chloride (98 - 107 mmol/L) 103 Carbon Dioxide (22 - 30 mmol/L) 18 L Anion Gap (5 - 16) 13 BUN (7 - 17 mg/dL) 26 H Creatinine (0.5 - 1.0 mg/dL) 1.2 H Estimated GFR (>60 ml/min) 44 L BUN/Creatinine Ratio (7 - 25 %) 21.7 Hematology CBC w Diff NO MAN DIFF REQ WBC (4.8 - 10.8 /CUMM) 22.5 H RBC (4.20 - 5.40 /CUMM) 2.76 L Hgb (12.0 - 16.0 G/DL) 8.6 L Hct (37 - 47 %) 25.4 L MCV (81.0 - 99.0 FL) 92.1 MCH (27.0 - 31.0 PG) 31.0 MCHC (33.0 - 37.0 G/DL) 33.6 RDW (11.5 - 14.5 %) 14.1 Plt Count (130 - 400 /CUMM) 319 MPV (7.4 - 10.4 FL) 7.3 L Gran % (42.2 - 75.2 %) 91.3 H Lymphocytes % (20.5 - 51.1 %) 4.7 L Monocytes % (1.7 - 9.3 %) 3.9 Eosinophils % (0 - 5 %) 0 Basophils % (0.0 - 2.0 %) 0.1 Absolute Granulocytes (1.4 - 6.5 /CUMM) 20.5 H Absolute Lymphocytes (1.2 - 3.4 /CUMM) 1.1 L Absolute Monocytes (0.10 - 0.60 /CUMM) 0.9 H Absolute Eosinophils (0.0 - 0.7 /CUMM) 0 Absolute Basophils (0.0 - 0.2 /CUMM) 0 Assessment/Plan Assessment/Plan 72 F POD 3 s/p R TKR due to right knee OA, recovering well and stable for discharge Cont cardiac diet Cont pain regimen OOB w/ rw, WBAT DVT ppx - eliquis bid Bowel regimen on board Home meds on board Cont dry daily dressing changes Encourage IS Appreciate medicines involvement D/c meds/instructions explained in detail D/c home with [facility] today Will d/w Dr. Krishnan Core Measures Venous Thromboembolism VTE Risk Factors Surgery No Mechanical VTE Prophylaxis d/t N/A MechProphylax Ordered No VTE Pharm Prophylaxis d/t NA PharmProphylax ordered
[2017-09-29] MEDS ORDERED: ELIQUIS2.5 M1 PO (08:15)
[2017-09-29] MEDS ORDERED: ULTRAM50 M1 PO (08:15)
[2017-09-29] MEDS ORDERED: HYDROCODON-ACE1 EAC2 PO ×2 (08:15→08:21)
[2017-09-29 08:31] VITALS: BP 146/68
[2017-09-29] MEDS ORDERED: CELEBREX200 M1 PO (08:34)
--- NOTE | 2017-09-29 10:48 | PN- Att Addend ---
Attending Addendum Attending Brief Note Patient seen and examined. Plan of care discussed with the medical team and the patient. Available lab work and radiology test reports were reviewed. Patient is feeling well and denies any complaints. Her pain is well controlled. She is anticipating discharge home today. Exam: General: Patient awake alert oriented without any distress CVS: S1 plus S2 without any murmur or gallops Chest: Few scattered crepitation without any wheeze. There is no respiratory distress. Abdomen: Soft non-tender, bowel sound present, no guarding or rebound [employer]: Awake alert oriented without any focal neuro deficit and follows commands appropriately Extremities: No edema; no clubbing or cyanosis noted Assessment and plan History of hypertension currently well controlled History osteoporosis Status post knee replacement-doing well Patient medically stable for discharge Current Medications Sig/Carrie Start time Last Medication Dose Route Stop Time Status Admin Acetaminophen 325 MG Q6P PRN 09/27 0945 AC 09/27 PO 2022 Amlodipine Besylate 5 MG DAILY 09/26 09 AC 09/29 PO 0830 Apixaban 2.5 MG BID 09/27 09 AC 09/29 PO 0830 Celecoxib 400 MG DAILY 09/27 09 AC 09/29 PO 0831 Docusate Sodium 100 MG DAILY NEEDED PRN 09/26 1400 AC PO Hydrocodone Bitart/ 1 TAB Q6P PRN 09/29 0815 AC Acetaminophen PO Losartan Potassium 50 MG DAILY 09/27 09 AC 09/29 PO 0831 Morphine Sulfate 2 MG Q3P PRN 09/26 1400 AC IV Morphine Sulfate 4 MG Q3P PRN 09/26 1400 AC IV Nebivolol 10 MG DAILY 09/27 0900 AC 09/29 PO 0831 Ondansetron HCl 4 MG Q6P PRN 09/26 1400 AC IV Patient Medication 1 ED ONE ONE 09/28 1715 DC Teaching ED 09/28 1716 Polyethylene Glycol 17 GM DAILY NEEDED PRN 09/26 1400 AC 09/27 PO 0854 Ropivacaine 500 ML ONCE ONE 09/26 1000 DC ON-Q Ball 1 BAG INJ 09/28 1159 Senna/Docusate Sodium 2 TAB AT BEDTIME NEED.. 09/26 1400 AC 09/28 PO 2318 Tramadol HCl 50 MG Q4 PRN 09/27 1900 AC 09/29 PO 0625 Laboratory Tests 09/28/17 0907: CBC w Diff NO MAN DIFF REQ, RBC 2.89 L, MCV 91.9, MCH 30.5, MCHC 33.1, RDW 14.4 , MPV 6.8 L, Gran % 76.5 H, Lymphocytes % 15.5 L, Monocytes % 6.5, Eosinophils % 1.3, Basophils % 0.2, Absolute Granulocytes 10.5 H, Absolute Lymphocytes 2.1, Absolute Monocytes 0.9 H, Absolute Eosinophils 0.2, Absolute Basophils 0 09/28/17 0641: Anion Gap 11, Estimated GFR 44 L, BUN/Creatinine Ratio 23.3 09/27/17 0820: Anion Gap 13, Estimated GFR 44 L, BUN/Creatinine Ratio 21.7, CBC w Diff NO MAN DIFF REQ, RBC 2.76 L, MCV 92.1, MCH 31.0, MCHC 33.6, RDW 14.1, MPV 7.3 L, Gran % 91.3 H, Lymphocytes % 4.7 L, Monocytes % 3.9, Eosinophils % 0, Basophils % 0.1, Absolute Granulocytes 20.5 H, Absolute Lymphocytes 1.1 L, Absolute Monocytes 0.9 H, Absolute Eosinophils 0, Absolute Basophils 0 Vital Signs Date Time Temp Pulse Resp B/P B/P Pulse O2 O2 Flow FiO2 Mean Ox Delivery Rate 09/29 0831 61 146/68 09/29 0831 61 146/68 09/29 0830 61 146/68 09/29 0622 98.3 61 18 146/68 97 Room Air 09/28 2229 98.4 63 18 114/66 98 Room Air 09/28 1459 97.8 58 20 130/60 95 Room Air Intake & Output 09/29 1600 09/29 0800 09/29 0000 Intake Total 240 200 Output Total Balance 240 200 Intake, Oral 240 200
== END 2017-09-29 10:30 | disposition home health service (06) | DRG 470 ==
LOC: SDA 00:49 → ENRESERV 12:12 → ENTRNSPT 13:26 → EDTRNSPT 13:28 → EDTRNSPTSTS 13:28 → 2NA 13:40 → CMPTRNSPT 13:45 → ENPENDDIS 09-29 08:12 → ENTRNSPT 09-29 10:22 → 2NA 09-29 10:30 → EDTRNSPT 09-29 10:30 → EDTRNSPTSTS 09-29 10:30 → CMPTRNSPT 09-29 11:04
PROVIDERS: Physician Assistant Surgical
PROC: 0SRC0J9 Replacement of Right Knee Joint with Synthetic Substitute, Cemented, Open Approach (ICD-10-PCS; principal; 2017-09-26)
PROC: 3E0T3BZ Introduction of Anesthetic Agent into Peripheral Nerves and Plexi, Percutaneous Approach (ICD-10-PCS; 2017-09-26)
DX: M17.11 Unilateral primary osteoarthritis, right knee (principal); E87.5 Hyperkalemia; I10 Essential (primary) hypertension; R09.89 Other specified symptoms and signs involving the circulatory and respiratory systems; M81.0 Age-related osteoporosis without current pathological fracture; Z88.0 Allergy status to penicillin; Z87.891 Personal history of nicotine dependence
CPT/HCPCS: 2NASP; 36415; 73560-RT; 82436; 87086; 97110-GO; 97116-GO; 97161-GP; 97530-GO; C1713; J0131; J1100; J2405; J2795; J3370; J7040; J7060